=== PATIENT | female | born 1960 | race Caucasian/White ===

== ENCOUNTER → 2017-10-19 10:23 | Outpatient (CLI) | payer OTHER, SELFPAY ==
--- NOTE | 2017-10-19 10:26 | HPBI_ITS ---
MAMMOGRAPHY - BILATERAL SCREENING REASON FOR EXAM: Female, 57 years old. Routine annual screening examination. PERTINENT HISTORY: Aunt with breast cancer. TECHNIQUE: Digital bilateral breast stacy (3D mammographic acquisition) in the CC and MLO projections. 2-D mediolateral oblique (MLO) and craniocaudad (CC) views of both breasts were obtained. CAD: Full Field Digital Mammography with Computer Added Detection was performed. COMPARISON: Comparison is made with prior study dated September 19, 2016 and August 25, 2015. FINDINGS: Breast Composition: The breasts are heterogeneously dense, which may obscure small masses. There are no dominant masses or suspicious calcifications. Stable asymmetry of breast tissue or more breast tissue is seen in the right breast as compared to the left side. Stable appearance of the 1.4 cm nodular density in the retroareolar region of the right breast. Stable appearance of the bilateral axillary lymph nodes. No other significant abnormalities are identified. There has been no significant change since the prior study. HPBI/SCREENING MAMM (CAD), BILAT IMPRESSION: Stable bilateral screening mammogram. Yearly follow-up mammogram recommended. (A) ASSESSMENT CATEGORY: BIRADS Category 2: Benign. A letter regarding these results will be sent to the patient by the facility within 30 days. Approximately 10% of breast cancers are not detected by mammography. A normal mammogram should not delay biopsy of a clinically suspicious abnormality. [id number] Electronically Signed: Sen Flores MD at 12:45 EST Tel [phone], Service support ,
== END ==
PROVIDERS: Family Provider Family Medicine; PCP Family Medicine; Visit Provider Nurse Practitioner Adult Health
DX: Z12.31 Encounter for screening mammogram for malignant neoplasm of breast (principal)
CPT/HCPCS: 77063; 77067

== ENCOUNTER 2017-11-08 22:36 | Emergency (ER) | payer OTHER, SELFPAY ==
[2017-11-08 22:36] VITALS: BP 137/68; PULSE 99; RESP 28; TEMP 37; O2SAT 98; BMI 36.8
[2017-11-08 22:43] VITALS: O2SAT 98
[2017-11-08 22:45] VITALS: PULSE 87; RESP 13; O2SAT 98
--- NOTE | 2017-11-08 22:48 | ED.VISSUMM ---
- ER Visit Summary Date of Service: 11/08/17 Chief Complaint: Dyspnea History of Present Illness: The patient is a 57 F worsening dyspnea and cough since 3 PM today. Mild productive sputum. No tobacco history. No sick contacts. Similar symptoms with croup as a child requiring hospitalization. Asthma history. Did take a steam shower which mildly helped symptoms on the way here. No chest pains. States has 2 emesis from coughing today. Tolerating oral fluids. History of diabetes on oral medicines. Physical Examination: General: Alert and oriented ?3, mild distress HEENT: Normocephalic, atraumatic. Airway patent. Moist mucosa membranes. Upper respiratory stridor. Neck: supple, nontender. mild subcostal retractions Cardiovascular: Regular rate and rhythm, no murmurs Respiratory: Normal breath sounds, symmetric, no distress Abdomen: Soft, nontender, nondistended Extremities: Nontender, no edema, pulses intact ?4 Neuro: no focal neurological deficits. Test Results: BG T: 154 Emergency Department Course and Treatment: Patient presents with acute laryngitis with stridorous symptoms. Vitals stable. Treated with racemic epinephrine and Decadron. She is monitored for 2 hours, stridor improved. Still occasional cough. Discussed viral syndrome. Discuss adjuvant therapies. Monitor symptoms, return if any worsening stridor symptoms. All questions were answered. Treatment Plan: [] Disposition: Discharge Impression: 1. Acute laryngitis with stridor This note was generated with [employer] dictation software. It may contain incorrect words, spelling, and punctuation that were not noted in review of the chart prior to signing ED Disposition - Plan for ED Patient: Disposition: Home or Assisted Living Chief Complaint: Shortness of Breath Diagnosis: Acute laryngitis Instructions: ED Laryngitis Referrals: Collin Bautista MD [Primary Care Provider] - 3-5 Days
[2017-11-08] MEDS: Racepinephrine HCl 0.5 ML VIAL.NEB. INHALATION (22:55)
[2017-11-08 22:56] VITALS: PULSE 92; RESP 16
[2017-11-08 23:41] LABS: Bedside Glucose 154 mg/dL (70-110)
[2017-11-08 23:48] VITALS: PULSE 80; RESP 14; O2SAT 100
[2017-11-09 00:43] VITALS: BP 150/82; PULSE 101; RESP 18; O2SAT 94
== END 2017-11-09 00:45 | disposition home or self-care (01) ==
PROVIDERS: Emergency Provider Emergency Medicine; Family Provider Family Medicine; PCP Family Medicine
DX: J04.0 Acute laryngitis (principal); R06.1 Stridor; E11.9 Type 2 diabetes mellitus without complications; J45.909 Unspecified asthma, uncomplicated; Z79.84 Long term (current) use of oral hypoglycemic drugs; Z79.51 Long term (current) use of inhaled steroids; Z79.899 Other long term (current) drug therapy
CPT/HCPCS: 82962; 94640; 99283

== ENCOUNTER → 2018-05-10 09:42 | Outpatient (CLI) | payer OTHER, SELFPAY ==
[2018-05-10 12:34] LABS: ALB/GLOB Ratio 0.9 RATIO (0.9-2.4); AST(SGOT) 20 U/L (15-37); Alanine Aminotransfer ALT/SGPT 27 U/L (13-56); Albumin, Serum 3.7 g/dL (3.2-5.0); Alkaline Phosphatase 58 U/L (45-117); Anion Gap 10 (5-15); BUN 17 mg/dL (7-18); BUN/Creat Ratio 13.8 RATIO (10-20); Calcium,Total 9.9 mg/dL (8.5-10.1); Chloride 103 mmol/L (98-107); Cholesterol 107 mg/dL (200); Creatinine, Serum 1.23 mg/dL (0.55-1.02); EST Glomerular Filtration Rate 48 mL/min (>60); Est Glom Filt Rate - Afr Amer 58 mL/min (>60); Globulin 4.3 g/dL (2.2-4.2); Glucose 126 mg/dL (74-106); High Density Lipoprotein 41 mg/dL; Potassium 4.1 mmol/L (3.5-5.1); Sodium Level 137 mmol/L (136-145); Thyroid Stim Hormone (TSH) 2.62 uIU/mL (0.358-3.74); Triglycerides 85 mg/dL; Very Low Density Lipoprotein 17 mg/dL (5-40)
== END ==
PROVIDERS: Family Provider Family Medicine; PCP Family Medicine; Visit Provider Family Medicine
DX: E11.9 Type 2 diabetes mellitus without complications (principal)
CPT/HCPCS: 36415; 80053; 80061; 84443

== ENCOUNTER → 2018-11-14 10:24 | Outpatient (CLI) | payer BC, SELFPAY ==
--- NOTE | 2018-11-14 10:29 | BI_ITS ---
MAMMOGRAPHY - BILATERAL SCREENING REASON FOR EXAM: Female, 58 years old. Routine annual screening examination. PERTINENT HISTORY: Aunt with breast cancer. History of remote right stereotactic breast biopsy. TECHNIQUE: Digital bilateral breast stacy (3D mammographic acquisition) in the CC and MLO projections. 2-D mediolateral oblique (MLO) and craniocaudad (CC) views of both breasts were obtained. CAD: Full Field Digital Mammography with Computer Added Detection was performed. COMPARISON: Comparison is made with prior study dated October 19, 2017 and September 19, 2016. FINDINGS: Breast Composition: The breasts are heterogeneously dense, which may obscure small masses. Stable asymmetry of breast tissue where more breast tissue is seen in the right breast as compared to the left side. There is a 1.4 cm x 0.9 cm nodule in the mid superior aspect of the left breast. Correlation with ultrasound is recommended. No other significant abnormalities are identified. BI/SCREENING MAMM (CAD), BILAT IMPRESSION: 1.4 cm x 0.9 cm nodule in the mid superior aspect of the left breast as described. Correlation with ultrasound is recommended. ASSESSMENT CATEGORY: BIRADS Category 0: Incomplete. Need additional imaging evaluation. A letter regarding these results will be sent to the patient by the facility within 30 days. Approximately 10% of breast cancers are not detected by mammography. A normal mammogram should not delay biopsy of a clinically suspicious abnormality. [id number] Electronically Signed: Sen Flores, at 12:43 EDT , Service support ,
== END ==
PROVIDERS: Family Provider Family Medicine; PCP Family Medicine; Visit Provider Family Medicine
DX: Z12.31 Encounter for screening mammogram for malignant neoplasm of breast (principal)
CPT/HCPCS: 77063; 77067

== ENCOUNTER → 2018-11-19 09:21 | Outpatient (CLI) | payer BC, SELFPAY ==
--- NOTE | 2018-11-19 09:23 | US_ITS ---
STUDY: ULTRASOUND BREAST - LEFT REASON FOR EXAM: Female, 58 years old. Abnormal screening mammogram. TECHNIQUE: Axial and longitudinal images of the LEFT breast were performed with a high resolution ultrasound transducer. COMPARISON: Comparison is made with prior mammogram dated November 14, 2018. FINDINGS: LEFT Breast: The mammographic abnormality corresponds to a 1.4 cm x 0.8 cm x 0.6 cm irregular hypoechoic density at the 12:00 position breast at 1 cm from the nipple. This may represent either a focally dilated duct with debris within it or a possible mass. A biopsy recommended for further evaluation. US/Breast Limited Unilateral IMPRESSION: 1.4 cm x 0.8 cm x 0.6 cm ill-defined hypoechoic density at the 12:00 position breast at 1 cm from nipple. This may represent either a mass or focal dilatation of the duct with debris. A biopsy recommended. ASSESSMENT CATEGORY: BIRADS Category 4: Suspicious - Biopsy Should Be Considered. A letter regarding these results will be sent to the patient by the facility within 30 days. Electronically Signed: Sen Flores, at 10:24 EDT , Service support ,
== END ==
PROVIDERS: Family Provider Family Medicine; PCP Family Medicine; Referring Provider Family Medicine; Visit Provider Family Medicine
DX: R92.8 Other abnormal and inconclusive findings on diagnostic imaging of breast (principal)
CPT/HCPCS: 76642

== ENCOUNTER → 2018-11-26 | Outpatient (CLI) | payer BC, SELFPAY ==
[2018-11-22 12:31] VITALS: BMI 35.4
[2018-11-26 13:00] LABS: AST(SGOT) 18 U/L (15-37); Alanine Aminotransfer ALT/SGPT 27 U/L (13-56); Albumin, Serum 3.9 g/dL (3.2-5.0); Alkaline Phosphatase 58 U/L (45-117); Anion Gap 6 (5-15); BUN 19 mg/dL (7-18); BUN/Creat Ratio 15.8 RATIO (10-20); Calcium,Total 9.6 mg/dL (8.5-10.1); Chloride 107 mmol/L (98-107); Cholesterol 110 mg/dL (200); EST Glomerular Filtration Rate 49 mL/min (>60); Est Glom Filt Rate - Afr Amer 59 mL/min (>60); Globulin 3.8 g/dL (2.2-4.2); Glucose 123 mg/dL (74-106); High Density Lipoprotein 42 mg/dL; Potassium 4.3 mmol/L (3.5-5.1); Protein, Total 7.7 g/dL (6.4-8.2); Sodium Level 141 mmol/L (136-145); Thyroid Stim Hormone (TSH) 2.15 uIU/mL (0.358-3.74); Triglycerides 91 mg/dL; Very Low Density Lipoprotein 18 mg/dL (5-40)
== END | disposition home or self-care (01) ==
LOC: MTLAB 09:16
PROVIDERS: Family Provider Family Medicine; PCP Family Medicine; Visit Provider Family Medicine
DX: E11.9 Type 2 diabetes mellitus without complications (principal)
CPT/HCPCS: 36415; 80053; 80061; 84443

== ENCOUNTER → 2018-12-07 | Outpatient (CLI) | payer BC, SELFPAY ==
[2018-11-22 12:31] VITALS: BMI 35.4
--- NOTE | 2018-12-07 | BRBX_PTH ---
PATIENT: JUDITH GILBERT LOC: [facility]#:[id number] AGE/SX: 58/F ROOM: RE12/07/[address]: Dr. Melchor Reyes MD : 1960 BED: DIS: 12/07/2018 SPEC #: [id number] RECD: 12/07/18 13:38 STATUS: CARMEN REQ #: [id number] LA[place]: 12/07/18 00:[address]: Melchor Reyes DEPT: SURGICAL PATHOLOGY RECD BY: Cliff Stewart ENTERED: 12/07/18 13:39 SP TYPE: BREAST BX OTHR DR: Dr. Dirk Bautista MD Tissues: Left breast, NOS Procedures: Surgery Specimen Level IV HEADER OPERATION: Left breast biopsy, ultrasound-guided PRE-OP DIAGNOSIS: Left breast mass at 12 o'clock TISSUE SUBMITTED: Left breast mass at 12 o'clock ISCHEMIC TIME: 1 minute FIXATION TIME: 55.5 hours MICROSCOPIC DIAGNOSIS Left breast mass at 12 o'clock, ultrasound-guided core biopsy: Fragments of benign breast tissue with dense fibrosis. Negative for atypia or malignancy. ALEX:keith 12/10/18 COMMENT Correlation with clinical, radiologic findings and appropriate follow up are necessary. MICROSCOPIC DESCRIPTION Slides are reviewed. GROSS DESCRIPTION Received is one container labeled with the patient's name and not further designated. The specimen consists of multiple elongated fragments of sin-yellow fibroadipose tissue that in aggregate measure 1.5 x 0.2 x 0.1 cm. The entire specimen is submitted in one cassette. / ALEX:keith 12/07/18 TC:5 CPT: 13017
--- NOTE | 2018-12-07 12:10 | US_ITS ---
STUDY: ULTRASOUND BREAST - LEFT REASON FOR EXAM: Female, 58 years old. Biopsy for the left breast mass. TECHNIQUE: Axial and longitudinal images of the LEFT breast were performed with a high resolution ultrasound transducer. COMPARISON: Comparison is made with prior sonogram dated November 19, 2018 and prior mammogram dated November 14, 2018. FINDINGS: LEFT Breast: Under ultrasound guidance, the surgeon performed core biopsies of the 1.5 cm x 1 cm x 0.7 cm solid nodule at the 12:00 position of the breast. US/US Breast Biopsy 1st Lesion IMPRESSION: Successful ultrasound-guided biopsy of the left breast mass. ASSESSMENT CATEGORY: BIRADS Category 4: Suspicious - Biopsy Should Be Considered. A letter regarding these results will be sent to the patient by the facility within 30 days. Electronically Signed: Sen Flores, at 13:46 EDT , Service support ,
--- NOTE | 2018-12-07 14:03 | PCM.OPRPT ---
Problem List (1) Abnormal mammogram of left breast Status: Acute Report of Operation Date of Procedure: 12/07/18 Pre-Operative Diagnosis: Abnormal mammogram the left breast Post-Operative Diagnosis: Same Surgery/Procedure Performed:: Ultrasound-guided needle core biopsy of abnormal mammogram the left breast Type of Anesthesia:: Local Description of Procedure: Patient was brought into the ultrasound room. Ultrasound of the left breast at the 12 o'clock position revealed the lesion in question. I prepped the skin with chlorhexidine. I injected 1% lidocaine plain. I injected local down to the lesion under ultrasound guidance. A skin roxanna was made. Under ultrasound guidance 2 needle core biopsies were obtained. Under ultrasound guidance a small titanium clip was placed. Steri-Strips were applied sterile dressings were applied and the patient tolerated the procedure well. - Admit VTE Documentation VTE Present on Admission: No VTE Mechan Device Prophylaxis: None VTE Pharm Prophylaxis ordered?: No Reason prophylaxis not ordered:: Treatment Not Indicated
== END | disposition home or self-care (01) ==
LOC: US 12:01
PROVIDERS: Family Provider Family Medicine; PCP Family Medicine; Referring Provider Surgery; Visit Provider Surgery
DX: R92.8 Other abnormal and inconclusive findings on diagnostic imaging of breast (principal)
CPT/HCPCS: 19083; 88305

== ENCOUNTER → 2019-03-01 | Outpatient (CLI) | payer BC, SELFPAY ==
[2018-11-22 12:31] VITALS: BMI 35.4
[2019-03-01 11:01] LABS: Anion Gap 5 (5-15); BUN 19 mg/dL (7-18); BUN/Creat Ratio 16.7 RATIO (10-20); Calcium,Total 9.1 mg/dL (8.5-10.1); Chloride 106 mmol/L (98-107); Creatinine, Serum 1.14 mg/dL (0.55-1.02); EST Glomerular Filtration Rate 52 mL/min (>60); Est Glom Filt Rate - Afr Amer 63 mL/min (>60); Glucose 137 mg/dL (74-106); Potassium 4.2 mmol/L (3.5-5.1); Sodium Level 139 mmol/L (136-145)
== END | disposition home or self-care (01) ==
LOC: MFPLAB 09:26
PROVIDERS: Family Provider Family Medicine; PCP Family Medicine; Visit Provider Family Medicine
DX: I10 Essential (primary) hypertension (principal)
CPT/HCPCS: 36415; 80048

== ENCOUNTER → 2019-06-10 | Outpatient (CLI) | payer BC, SELFPAY ==
[2018-11-22 12:31] VITALS: BMI 35.4
--- NOTE | 2019-06-10 09:05 | BI_ITS ---
MAMMOGRAPHY - UNILATERAL DIAGNOSTIC: LEFT BREAST REASON FOR EXAM: Female, 58 years old. History of left ultrasound-guided breast biopsy in prior stereotactic breast biopsy. PERTINENT HISTORY: Non-contributory. TECHNIQUE: Digital unilateral breast stacy (3D mammographic acquisition) in the CC and MLO projections. 2-D mediolateral oblique (MLO) and craniocaudad (CC) views of both breasts were obtained. CAD: Full Field Digital Mammography with Computer Added Detection was performed. COMPARISON: Comparison is made with prior examination dated November 14, 2018. FINDINGS: Breast Composition: The breasts are heterogeneously dense, which may obscure small masses. Stable 1.3 cm x 1 cm well-defined nodule in the mid upper portion of the left breast. This is unchanged. A tissue clip marker is now seen in the retroareolar region of the left breast. Stable appearance of the small axillary lymph nodes. No other significant abnormalities are identified. There has been no significant change since the prior study. BI/DIAG MAMM W/CAD, UNILAT IMPRESSION: Stable unilateral diagnostic mammogram. Stable appearance of the 1.3 cm x 1 cm well-defined nodule in the mid upper portion of the left breast. Since prior study, a tissue clip marker is seen in the retroareolar region of the breast. One year follow-up mammogram recommended. (A) ASSESSMENT CATEGORY: BIRADS Category 2: Benign. A letter regarding these results will be sent to the patient by the facility within 30 days. Approximately 10% of breast cancers are not detected by mammography. A normal mammogram should not delay biopsy of a clinically suspicious abnormality. Electronically Signed: Sen Flores, at 11:25 EDT , Service support ,
--- NOTE | 2019-06-10 09:05 | US_ITS ---
STUDY: ULTRASOUND BREAST - LEFT REASON FOR EXAM: Female, 58 years old. Six-month follow-up for prior biopsy. TECHNIQUE: Axial and longitudinal images of the LEFT breast were performed with a high resolution ultrasound transducer. COMPARISON: Comparison is made with prior ultrasound the left breast dated December 07, 2018. FINDINGS: LEFT Breast: A tissue clip marker is seen within a 1 cm x 1.1 cm x 0.6 cm slightly irregular hypoechoic nodule at the 12:00 position in the breast at 1 cm from the nipple. US/Breast Limited Unilateral IMPRESSION: Stable appearance of the hypoechoic nodule at the 12:00 position of the breast at 1 cm from nipple with a tissue clip marker within it. ASSESSMENT CATEGORY: BIRADS Category 2: Benign. A letter regarding these results will be sent to the patient by the facility within 30 days. Electronically Signed: Sen Flores, at 11:23 EDT , Service support ,
== END | disposition home or self-care (01) ==
LOC: OPBI 09:03
PROVIDERS: Family Provider Family Medicine; PCP Family Medicine; Referring Provider Surgery; Visit Provider Surgery
DX: R92.8 Other abnormal and inconclusive findings on diagnostic imaging of breast (principal); Z98.890 Other specified postprocedural states
CPT/HCPCS: 76642; 77061; 77065; G0279

== ENCOUNTER → 2019-10-21 | Outpatient (CLI) | payer BC, SELFPAY ==
[2018-11-22 12:31] VITALS: BMI 35.4
[2019-10-24 14:04] LABS: HPV Reflexed? NOT INDICATED
== END | disposition home or self-care (01) ==
PROVIDERS: PCP Family Medicine; Visit Provider Nurse Practitioner Adult Health
DX: Z01.419 Encounter for gynecological examination (general) (routine) without abnormal findings (principal)
CPT/HCPCS: 88175; G0145

== ENCOUNTER → 2020-01-06 | Outpatient (CLI) | payer BC, SELFPAY ==
[2018-11-22 12:31] VITALS: BMI 35.4
[2020-01-06 12:45] LABS: Anion Gap 8 (5-15); BUN 22 mg/dL (7-18); BUN/Creat Ratio 18.5 RATIO (10-20); Calcium,Total 9.8 mg/dL (8.5-10.1); Chloride 104 mmol/L (98-107); Creatinine, Serum 1.19 mg/dL (0.55-1.02); EST Glomerular Filtration Rate 49 mL/min (>60); Est Glom Filt Rate - Afr Amer 59 mL/min (>60); Glucose 108 mg/dL (74-106); Potassium 4.3 mmol/L (3.5-5.1); Sodium Level 137 mmol/L (136-145)
== END | disposition home or self-care (01) ==
LOC: MFPLAB 11:00
PROVIDERS: PCP Family Medicine; Visit Provider Family Medicine
DX: E11.9 Type 2 diabetes mellitus without complications (principal)
CPT/HCPCS: 36415; 80048

== ENCOUNTER → 2020-07-01 09:57 | Outpatient (CLI) | payer BC, SELFPAY ==
[2018-11-22 12:31] VITALS: BMI 35.4
--- NOTE | 2020-07-01 10:01 | BI_ITS ---
MAMMOGRAPHY - BILATERAL SCREENING REASON FOR EXAM: Female, 59 years old. Routine annual screening examination. PERTINENT HISTORY: Aunt with breast cancer. Remote right stereotactic breast biopsy and left breast biopsy. TECHNIQUE: Digital bilateral breast steve (3D mammographic acquisition) in the CC and MLO projections. 2-D mediolateral oblique (MLO) and craniocaudad (CC) views of both breasts were obtained. CAD: Full Field Digital Mammography with Computer Added Detection was performed. COMPARISON: Comparison is made with prior study dated 06/10/2019. FINDINGS: Breast Composition: The breasts are heterogeneously dense, which may obscure small masses. There are no dominant masses or suspicious calcifications. Stable 1.3 cm x 1.1; defined nodule in the mid upper portion of left breast. This is unchanged. Once again, a tissue clip marker is seen in the retroclival region of the left breast. No other significant abnormalities are identified. There has been no significant change since the prior study. BI/SCREEN MAMM (CAD) W/STEVE BILAT IMPRESSION: Stable bilateral screening mammogram. Yearly follow-up mammogram recommended. (A) ASSESSMENT CATEGORY: BIRADS Category 2: Benign. A letter regarding these results will be sent to the patient by the facility within 30 days. Approximately 10% of breast cancers are not detected by mammography. A normal mammogram should not delay biopsy of a clinically suspicious abnormality. [id number] Electronically Signed: Sen Flores, at 11:30 EST , Service support ,
== END ==
PROVIDERS: PCP Family Medicine; Referring Provider Nurse Practitioner Adult Health; Visit Provider Nurse Practitioner Adult Health
DX: Z12.31 Encounter for screening mammogram for malignant neoplasm of breast (principal)
CPT/HCPCS: 77063; 77067

== ENCOUNTER → 2020-07-13 09:23 | Outpatient (CLI) | payer BC, SELFPAY ==
[2018-11-22 12:31] VITALS: BMI 35.4
[2020-07-13 10:42] LABS: Cholesterol 158 mg/dL (200); High Density Lipoprotein 46 mg/dL; Thyroid Stim Hormone (TSH) 2.28 uIU/mL (0.358-3.74); Triglycerides 133 mg/dL; Very Low Density Lipoprotein 27 mg/dL (5-40)
== END ==
PROVIDERS: PCP Family Medicine; Visit Provider Family Medicine
DX: E11.65 Type 2 diabetes mellitus with hyperglycemia (principal)
CPT/HCPCS: 36415; 80061; 84443

== ENCOUNTER → 2020-08-10 | Outpatient (CLI) | payer BC, SELFPAY ==
[2018-11-22 12:31] VITALS: BMI 35.4
== END | disposition home or self-care (01) ==
LOC: LABSPEC 13:45
PROVIDERS: PCP Family Medicine; Referring Provider Family Medicine; Visit Provider Family Medicine
DX: Z20.828 Contact with and (suspected) exposure to other viral communicable diseases (principal)
CPT/HCPCS: 87635; U0003

== ENCOUNTER → 2020-12-04 09:03 | Outpatient (CLI) | payer OTHER, SELFPAY ==
[2018-11-22 12:31] VITALS: BMI 35.4
--- NOTE | 2020-12-04 09:21 | BI_ITS ---
MAMMOGRAPHY - UNILATERAL DIAGNOSTIC: RIGHT BREAST REASON FOR EXAM: Female, 60 years old. Right breast mass. PERTINENT HISTORY: Aunt with breast cancer. TECHNIQUE: Digital unilateral breast stacy (3D mammographic acquisition) in the CC and MLO projections. 2-D mediolateral oblique (MLO) and craniocaudad (CC) views of both breasts were obtained. CAD: Full Field Digital Mammography with Computer Added Detection was performed. COMPARISON: Comparison is made with prior study dated 07/01/2020. FINDINGS: Breast Composition: The breasts are heterogeneously dense, which may obscure small masses. There are now is evidence of a 1.8 cm x 1.1 cm nodule in the upper slightly lateral aspect of the right breast. Correlation with ultrasound is recommended. No other significant abnormalities are identified. BI/DIAG MAMM W/CAD, UNILAT IMPRESSION: 1.8 cm x 1.1 cm nodule in these upper slightly outer aspect of the right breast as described. Correlation with ultrasound is recommended. ASSESSMENT CATEGORY: BIRADS Category 0: Incomplete. Need additional imaging evaluation. A letter regarding these results will be sent to the patient by the facility within 30 days. Approximately 10% of breast cancers are not detected by mammography. A normal mammogram should not delay biopsy of a clinically suspicious abnormality. Electronically Signed: Sen Flores MD at 10:59 EDT , Service support ,
--- NOTE | 2020-12-04 10:02 | US_ITS ---
STUDY: ULTRASOUND BREAST - RIGHT REASON FOR EXAM: Female, 60 years old. 7-10 day history of palpable lump in the upper outer aspect of the breast. TECHNIQUE: Axial and longitudinal images of the RIGHT breast were performed with a high resolution ultrasound transducer. # OF IMAGES: 65 COMPARISON: Comparison is made with prior mammogram done earlier today. FINDINGS: RIGHT Breast: There is a 2 cm x 2 cm x 1.2 cm density of heterogeneous echotexture at the 10 o''clock position of the breast at 7 cm from nipple. This corresponds to the palpable modality. A biopsy is recommended. Dense breast tissue. US/Breast Limited Unilateral IMPRESSION: 2 cm x 2 cm x 1.2 cm heterogeneous density at the 10 o''clock position of the breast at 7 cm from nipple. A biopsy is recommended. ASSESSMENT CATEGORY: BIRADS Category 4: Suspicious - Biopsy Should Be Considered. A letter regarding these results will be sent to the patient by the facility within 30 days. Electronically Signed: Sen Flores MD at 10:58 EDT , Service support ,
== END ==
PROVIDERS: PCP Family Medicine; Referring Provider Nurse Practitioner Family; Visit Provider Nurse Practitioner Family
DX: N63.10 Unspecified lump in the right breast, unspecified quadrant (principal)
CPT/HCPCS: 76642; 77061; 77065; G0279

== ENCOUNTER → 2020-12-22 | Outpatient (CLI) | payer OTHER, SELFPAY ==
[2020-12-22 10:17] VITALS: BMI 38.2
--- NOTE | 2020-12-22 10:40 | BRBX_PTH ---
PATIENT: JUDITH GILBERT LOC: [facility] U#:[id number] AGE/SX: 60/F ROOM: RE12/22/[address]: Dr. Amarilys Lacey MD : 1960 BED: DIS: 12/22/2020 SPEC #: [id number] RECD: 12/22/20 11:05 STATUS: CARMEN SAMLON #: [id number] LA[place]: 12/22/20 10:[address]: Amarilys Lacey DEPT: SURGICAL PATHOLOGY RECD BY: Maureen Hernandez ENTERED: 12/22/20 13:03 SP TYPE: BREAST BX OTHR DR: Dr. Dirk Bautista MD Tissues: Breast, NOS Procedures: Surgery Specimen Level IV HEADER OPERATION: Right breast biopsy PRE-OP DIAGNOSIS: Right breast mass; cyst with hematoma TISSUE SUBMITTED: Right breast tissue, 10 o?clock, 7 cm MICROSCOPIC DIAGNOSIS Right breast mass, biopsy: Fibrosis with associated fibrinoid material, mild acute inflammation and chronic inflammation. Focal fat necrosis. No evidence of malignancy. AM:keith 12/23/2020 COMMENT Reference is made to the previous case ([id number]) left breast mass biopsy from 2019 with a diagnosis of no malignancy was identified. MICROSCOPIC DESCRIPTION Slides are reviewed. GROSS DESCRIPTION Received in fixative is one container labeled with the patient name and designated right breast. The specimen consists of multiple elongated fragments of sin-yellow fibroadipose tissue that in aggregate measure 1.5 x 0.1 x 0.1 cm. The entire specimen is submitted in one cassette. / SJ:keith 12/22/20 TC:2 CPT: 80243
== END | disposition home or self-care (01) ==
LOC: LABSPEC 12:27
PROVIDERS: PCP Family Medicine; Referring Provider Surgery; Visit Provider Surgery
DX: N63.10 Unspecified lump in the right breast, unspecified quadrant (principal)
CPT/HCPCS: 88305

== ENCOUNTER → 2021-01-07 10:07 | Outpatient (CLI) | payer OTHER, SELFPAY ==
[2020-12-22 10:17] VITALS: BMI 38.2
[2021-01-07 12:38] LABS: AST(SGOT) 18 U/L (15-37); Alanine Aminotransfer ALT/SGPT 26 U/L (13-56); Albumin, Serum 3.8 g/dL (3.2-5.0); Alkaline Phosphatase 55 U/L (45-117); Anion Gap 6 (5-15); BUN 23 mg/dL (7-18); BUN/Creat Ratio 17.2 RATIO (10-20); Calcium,Total 9.8 mg/dL (8.5-10.1); Chloride 104 mmol/L (98-107); Creatinine, Serum 1.34 mg/dL (0.55-1.02); EST Glomerular Filtration Rate 43 mL/min (>60); Est Glom Filt Rate - Afr Amer 52 mL/min (>60); Globulin 3.9 g/dL (2.2-4.2); Glucose 103 mg/dL (74-106); Potassium 4.4 mmol/L (3.5-5.1); Protein, Total 7.7 g/dL (6.4-8.2); Sodium Level 137 mmol/L (136-145)
== END ==
PROVIDERS: PCP Family Medicine; Referring Provider Family Medicine; Visit Provider Family Medicine
DX: E11.65 Type 2 diabetes mellitus with hyperglycemia (principal)
CPT/HCPCS: 36415; 80053

== ENCOUNTER 2021-10-13 11:47 | Outpatient (CLI) | payer OTHER, SELFPAY ==
[2021-10-13 15:39] LABS: AST(SGOT) 24 U/L (15-37); Alanine Aminotransfer ALT/SGPT 34 U/L (13-56); Albumin, Serum 3.8 g/dL (3.2-5.0); Alkaline Phosphatase 91 U/L (45-117); Anion Gap 8 (5-15); BUN 14 mg/dL (7-18); BUN/Creat Ratio 14.9 RATIO (10-20); Calcium,Total 9.5 mg/dL (8.5-10.1); Chloride 102 mmol/L (98-107); Cholesterol 153 mg/dL (200); Creatinine, Serum 0.94 mg/dL (0.55-1.02); EST Glomerular Filtration Rate 64 mL/min (>60); Est Glom Filt Rate - Afr Amer 78 mL/min (>60); Glucose 127 mg/dL (74-106); High Density Lipoprotein 46 mg/dL; Potassium 4.4 mmol/L (3.5-5.1); Protein, Total 7.8 g/dL (6.4-8.2); Sodium Level 136 mmol/L (136-145); Thyroid Stim Hormone (TSH) 2.65 uIU/mL (0.358-3.74); Triglycerides 146 mg/dL; Very Low Density Lipoprotein 29 mg/dL (5-40)
== END 2021-10-13 23:59 | disposition home or self-care (01) ==
LOC: MFPLAB 11:50
PROVIDERS: PCP Family Medicine; Referring Provider Family Medicine; Visit Provider Family Medicine
DX: E11.65 Type 2 diabetes mellitus with hyperglycemia (principal)
CPT/HCPCS: 36415; 80053; 80061; 84443

== ENCOUNTER → 2022-02-16 | Outpatient (CLI) | payer OTHER, SELFPAY ==
[2022-02-16 15:11] LABS: Absolute Lymphocyte Count 1.94 X10^3/uL (0.83-4.51); Absolute Neutrophil Count 4.5 X10^3/uL (2.0-7.7); Basophil# 0.03 X10^3/uL; Basophil% 0.4 % (0-1); Eosinophils% 2.8 % (0-5); Lymphocyte # 1.94 X10^3/ul (0.83-4.51); Lymphocyte % 27.2 % (19-41); Mean Corp Hgb Conc 32.5 g/dL (32-36); Mean Corpuscular Volume 86.2 fL (81-99); Monocyte% 5.6 % (0-10); NRBC Flagged by Analyzer 0 % (0-5); Neutrophil # 4.54 X10^3/uL (2.7-7.7); Neutrophil % 63.9 % (47-70); Platelet Count 271 K/mm3 (150-450); RBC Distribution Width CV 13.3 % (11.6-14.6); RBC Distribution Width SD 41.3 fl (35.1-43.9); Red Blood Count 4.64 M/mm3 (4.2-5.4); White Blood Count 7.1 K/mm3 (4.4-11.0)
[2022-02-16 15:46] LABS: AST(SGOT) 20 U/L (15-37); Alanine Aminotransfer ALT/SGPT 31 U/L (13-56); Albumin, Serum 3.8 g/dL (3.2-5.0); Alkaline Phosphatase 60 U/L (45-117); Anion Gap 6 (5-15); BUN 14 mg/dL (7-18); BUN/Creat Ratio 11.3 RATIO (10-20); Calcium,Total 10.5 mg/dL (8.5-10.1); Chloride 100 mmol/L (98-107); Creatinine, Serum 1.24 mg/dL (0.55-1.02); EST Glomerular Filtration Rate 47 mL/min (>60); Est Glom Filt Rate - Afr Amer 56 mL/min (>60); Globulin 3.7 g/dL (2.2-4.2); Glucose 274 mg/dL (74-106); Potassium 4.2 mmol/L (3.5-5.1); Protein, Total 7.5 g/dL (6.4-8.2); Sodium Level 133 mmol/L (136-145)
== END | disposition home or self-care (01) ==
LOC: MTLAB 12:42
PROVIDERS: PCP Family Medicine; Referring Provider Family Medicine; Visit Provider Family Medicine
DX: E11.9 Type 2 diabetes mellitus without complications (principal)
CPT/HCPCS: 36415; 80053; 85025

== ENCOUNTER 2022-06-30 18:00 | Outpatient (RCR) | payer OTHER, SELFPAY ==
--- NOTE | 2022-04-12 18:23 | HP.PTEVAL ---
Patient's Visit Information JUDITH GILBERT is a 61 year old F referred to Physical Therapy by Dr. Collin Bautista MD with a diagnosis of L ITB piriformis syndrome. Date of Evaluation: 04/12/22 Physical Therapist: Manny Francis, DPT, OCS, CSCS - Visit Plan Frequency: 2-3x /Week Duration: 4-6 Weeks Plan: 2-3x/week for 4 weeks for... 1. start with rollout and stretch with MH to L piriformis, ITB . HS and quad and progress quad and HS to EHP(piriformis and ITB already given). 2. hip, core strength to HEP. 3. LB ROM focussing extension to HEP. progress as tolerated to gym based core, LE and postural strength ex emphasizing hips. - Subjective In October or November had some sciatica very bad. Had prednisone for two weeks and it did not help. Eventually she felt better Pain moved from L buttock and now posterior and down L lateral leg and calf. Got steroid shot a few weeks ago which really helped and that was in her hip. Some days she is fine and other days she gets up after sitting and can hardly move. Some nights rolling fine and other nights rolling in bed is tough. Pain has been up to 7/10 in last week mostly dull 2-3/10 in L knee and lateral. Has no LBP currently but but did early on in back. No xray or MRI. 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 STanding is less comfortable than sitting. Activities at home are interrupted sometimes. Cannot garden fully, needs to limit push lawn mowing b/c she feels worse afterwords. Has to sit on stool to garden. No incontinence. Doctor gave stretches which did not help, leg crossed pirifromis stretch, - Pain L hip and leg Pain Intensity (Out of 10): 2 Pain Intensity Range: 0, 7 - Objective Walks with slight L antalgia and L hip slightly higher than R. I gait, I transfers but rolling and lifting hips in supine painful in L hip when WB L LE. Good balance. knee and ankle AROM WFL B LE and W/o pain. Strength is 4-/5 in knees and ankles and has some discomfort L hip lateral with resisted knee ext. LB AROM ext mod limited, flexiona nd SB are OK. Some pain L hip with ext. - SLR, - slump test. Max tight in HS , ITB, quads and psoas, mod in prifromis. Hip AROm B symmetircal and WFL, no obvious asymmetries in strength although L hip painful with abd, flexion and slightly with extension all in lateral hip. Max tender to touch L piriformis area, ITB, mildly into HS and lateral quad. reflexes 1/3 patella and achilles B. Sensation L E WNL to gross light touch. - ANGELA. - FADDIR - Balance/Special Test Scores Lower Extremity Functional Score: 52 - Goals Goal 1:: Patient feel 75% betterin L LE pain at 1/10 at worst. Goal Time Frame: 4-6 Weeks Goal 2:: Pt have full LB ROM and walk without antalgia due to pain Goal Time Frame: 4-6 Weeks Goal 3:: I appropriate HEP to minimize future problems Goal Time Frame: 4-6 Weeks Goal 4:: LEFS score 65 Goal Time Frame: 4-6 Weeks Goal 5:: sleep without interruption due to pain Goal Time Frame: 4-6 Weeks - Rehabilitation Potential Physical Therapy Diagnosis: L leg pain soft tissue in nature with back limitations. Rehabilitation Potential: Fair - Anticipated Interventions Patient/Client Instruction: Educate patient on: Condition, Plan of Care For the Purpose of:: To decrease pain, To increase ROM, To improve nutrient delivery to tissue, To improve muscle performance and motor function, To increase tolerance to activity/condition/position Therapeutic Exercise to Include: Strength training, Postural training, Flexibilty training, Passive ROM, Active ROM, Dynamic Lumbar Stabilization For the Purpose of:: To decrease pain, To increase ROM, To improve nutrient delivery to tissue, To improve muscle performance and motor function, To increase tolerance to activity/condition/position Manual Therapy Techniques to Include: Mobilization, Passive ROM, Soft tissue mobilization For the Purpose of:: To decrease pain, To increase ROM, To improve nutrient delivery to tissue TENS: Yes Thermo therapy (hot pack): Yes For the Purpose of:: To decrease pain, To decrease swelling/inflammation, To increase ROM Thank you for the opportunity to evaluate your patient. For Medicare and Medicare HMO plans, please review the plan of care and approve it. It will need to be FAXED BACK to us at [phone] for Medicare purposes. For Medicare only, by signing this I certify the plan of care. Please let me know if there are questions or concerns regarding this plan of care. Physician Signature: Date:
--- NOTE | 2022-05-17 18:48 | HP.PTREVAL_ITS ---
Dr. Collin Bautista MD, It has been my pleasure to treat JUDITH GILBERT over the last 9 visits for L ITB piriformis syndrome. Please see the progress note below for an update on the physical therapy plan of care! Subjective: So much better overall. Still has tweaks and twinges. Stretches have been semi regular. Pain depends on the day. Been using lumbar support at home and it helps. Limiting sitting. Feels like continuing stretches will get her where she needs to be. Bad days are 8/10 lateral hip. Good days are 0/10. To doctor in a month. Has had injections in the past but does not want more and does not want more meds. Life will slow down in a montha dn she will be able to do exercises. Objective/Function: Walking well today, Steps reciprocally with rail without pain expressions. Slight discomfort hip scooting onto table noticeable. Plan Plan: f/u 3 weeks for d/c or consider gym exercises(pt to [employer]) if desired. Pt to ex at home in the meantime and call if pain worsens. Balance/Gait/Functional tests - Balance/Special Test Scores Lower Extremity Functional Score: 57 Goals Goal 1:: Patient feel 75% betterin L LE pain at 1/10 at worst. Goal Time Frame: 4-6 Weeks Goal Progress: Goal Met Goal 2:: Pt have full LB ROM and walk without antalgia due to pain Goal Time Frame: 4-6 Weeks Goal Progress: Goal Met Goal 3:: I appropriate HEP to minimize future problems Goal Time Frame: 4-6 Weeks Goal Progress: Goal Met Goal 4:: LEFS score 65 Goal Time Frame: 4-6 Weeks Goal Progress: Progressing Goal 5:: sleep without interruption due to pain Goal Time Frame: 4-6 Weeks Goal Progress: Goal Met, intermittently Anticipated Interventions Patient/Client Instruction: Educate patient on: Condition, Plan of Care For the Purpose of:: To decrease pain, To increase ROM, To improve nutrient delivery to tissue, To improve muscle performance and motor function, To increase tolerance to activity/condition/position Therapeutic Exercise to Include: Strength training, Postural training, Flexibilty training, Passive ROM, Active ROM, Dynamic Lumbar Stabilization For the Purpose of:: To decrease pain, To increase ROM, To improve nutrient delivery to tissue, To improve muscle performance and motor function, To increase tolerance to activity/condition/position Manual Therapy Techniques to Include: Mobilization, Passive ROM, Soft tissue mobilization For the Purpose of:: To decrease pain, To increase ROM, To improve nutrient delivery to tissue TENS: Yes Thermo therapy (hot pack): Yes For the Purpose of:: To decrease pain, To decrease swelling/inflammation, To i ncrease ROM Please do not hesitate to contact me at [phone] by phone or if you have questions or concerns regarding this new plan of care! Sincerely, Manny Francis, DPT, OCS, CSCS
--- NOTE | 2022-06-29 07:45 | HP.PTDCNRP_ITS ---
JUDITH GILBERT was seen in my office for initial evaluation on 04/12/22. The following Plan of Care was established for this patient: Initial Frequency: 2-3x /Week Initial Duration: 4-6 Weeks Patient/Client Instruction: Educate patient on: Condition, Plan of Care For the Purpose of:: To decrease pain, To increase ROM, To improve nutrient delivery to tissue, To improve muscle performance and motor function, To increase tolerance to activity/condition/position Therapeutic Exercise to Include: Strength training, Postural training, Flexibilty training, Passive ROM, Active ROM, Dynamic Lumbar Stabilization For the Purpose of:: To decrease pain, To increase ROM, To improve nutrient delivery to tissue, To improve muscle performance and motor function, To increase tolerance to activity/condition/position Manual Therapy Techniques to Include: Mobilization, Passive ROM, Soft tissue mobilization For the Purpose of:: To decrease pain, To increase ROM, To improve nutrient d elivery to tissue TENS: Yes Thermo therapy (hot pack): Yes For the Purpose of:: To decrease pain, To decrease swelling/inflammation, To increase ROM This patient was last seen in our office 05/17/22. Pertinent comments regarding their Physical therapy will appear below: Pt seen 9 visits of POC and was 80% better. She was to f/u 3 weeks later to ensure progress but did not schedule or attend. At this point, it has been over 6 weeks and I will discontinue from my care. At this point I will be discontinuing this patient from physical therapy. I would be happy to see this patient again in the future if found appropriate by the physician. Thank you! Manny Francis, DPT, OCS, CSCS Balance/Gait/Functional tests - Balance/Special Test Scores Lower Extremity Functional Score: 57
--- NOTE | 2022-06-30 18:39 | HP.PTDCSUM ---
It has been my pleasure to treat JUDITH GILBERT referred by Dr. Collin Bautista MD, with the diagnosis of L ITB piriformis syndrome for a total of 10 visit(s). Discharge Date: 06/30/22 Please see the following information for a summary of their discharge status. Subjective: Took a new job and busy and stressful. Did well with hip for a while and did ex really well. had a friend move into hospice and did not do much for a wee. She got worse. Back to stretching now and improving. Has been doing stretches but not started strengthening. To doctor in August. L hip and leg Pain Intensity (Out of 10): 0 % Improvement: 85 Objective/Function: Full aROM B hips, Walking without gait deviations, steps without pain today. Doing well overall and still improving. has stretches down pat but has not started her strengthening. Goal 1:: Patient feel 75% betterin L LE pain at 1/10 at worst. Goal Progress: Goal Met Goal 2:: Pt have full LB ROM and walk without antalgia due to pain Goal Progress: Goal Met Goal 3:: I appropriate HEP to minimize future problems Goal Progress: Goal Met Goal 4:: LEFS score 65 Goal Progress: Progressing Goal 5:: sleep without interruption due to pain Goal Progress: Goal Met Plan: d/c to home stretches and to start strength. Pt to contact doctor if pain does not continue to improve. If there are questions or concerns regarding this patient's physical therapy, please feel free to call me at [phone]. Thank you for the referral of this patient. Sincerely, Manny Francis, DPT, OCS, CSCS Balance/Gait/Functional tests - Balance/Special Test Scores Lower Extremity Functional Score: 57
== END 2022-06-30 19:00 | disposition home or self-care (01) ==
LOC: PT 18:00
PROVIDERS: PCP Family Medicine; Referring Provider Family Medicine; Visit Provider Family Medicine
DX: M76.32 Iliotibial band syndrome, left leg (principal); G57.01 Lesion of sciatic nerve, right lower limb
CPT/HCPCS: 97110; 97140; 97161; 97164; 97530

== ENCOUNTER → 2023-09-15 | Outpatient (CLI) | payer OTHER, SELFPAY ==
--- NOTE | 2023-09-15 07:54 | BI_ITS ---
MAMMOGRAPHY - BILATERAL SCREENING REASON FOR EXAM: Female, 63 years old. Routine annual screening examination. PERTINENT HISTORY: Aunts with breast cancer. TECHNIQUE: Digital bilateral breast steve (3D mammographic acquisition) in the CC and MLO projections. 2-D mediolateral oblique (MLO) and craniocaudad (CC) views of both breasts were obtained. CAD: Full Field Digital Mammography with Computer Added Detection was performed. COMPARISON: Comparison is made with prior study dated July 01, 2020 and December 04, 2020. FINDINGS: Breast Composition: The breasts are heterogeneously dense, which may obscure small masses. There are no dominant masses or suspicious calcifications. Stable asymmetry of breast tissue with more breast tissue is seen in the upper outer quadrant of the right breast as compared to the left side. Stable 9 mm well-defined nodule in the upper central portion of the left breast. A tissue clip marker is once again seen in the retroareolar region of the left breast. No other significant abnormalities are identified. There has been no significant change since the prior study. BI/SCRN MAMM (CAD)W/STEVE BILAT IMPRESSION: Stable bilateral screening mammogram. Yearly follow-up mammogram recommended. (A) ASSESSMENT CATEGORY: BIRADS Category 2: Benign. A letter regarding these results will be sent to the patient by the facility within 30 days. Approximately 10% of breast cancers are not detected by mammography. A normal mammogram should not delay biopsy of a clinically suspicious abnormality. [id number] Electronically Signed: Sen Flores MD at 12:27 EST ,
[2023-09-15 09:14] LABS: Vitamin B12 362 pg/mL (211-911); Vitamin D,25 Hydroxy 36.5 ng/mL
[2023-09-15 09:24] LABS: AST(SGOT) 20 U/L (15-37); Alanine Aminotransfer ALT/SGPT 23 U/L (13-56); Albumin, Serum 3.9 g/dL (3.2-5.0); Alkaline Phosphatase 60 U/L (45-117); Anion Gap 4 (5-15); BUN 17 mg/dL (7-18); BUN/Creat Ratio 13.5 RATIO (10-20); Calcium,Total 9.7 mg/dL (8.5-10.1); Chloride 106 mmol/L (98-107); Cholesterol 122 mg/dL (200); Creatinine, Serum 1.26 mg/dL (0.55-1.02); EST Glomerular Filtration Rate 45 mL/min (>60); Est Glom Filt Rate - Afr Amer 55 mL/min (>60); Globulin 4.1 g/dL (2.2-4.2); Glucose 187 mg/dL (74-106); High Density Lipoprotein 39 mg/dL; Iron 70 ug/dL (50-170); Potassium 4.3 mmol/L (3.5-5.1); Sodium Level 135 mmol/L (136-145); Thyroid Stim Hormone (TSH) 2.44 uIU/mL (0.358-3.74); Triglycerides 103 mg/dL; Very Low Density Lipoprotein 21 mg/dL (5-40)
== END | disposition home or self-care (01) ==
PROVIDERS: PCP Family Medicine; Referring Provider Family Medicine; Visit Provider Family Medicine
DX: Z12.31 Encounter for screening mammogram for malignant neoplasm of breast (principal); E11.22 Type 2 diabetes mellitus with diabetic chronic kidney disease; N18.9 Chronic kidney disease, unspecified
CPT/HCPCS: 36415; 77063; 77067; 80053; 80061; 82306; 82607; 83540; 84443

== ENCOUNTER → 2024-06-25 | Outpatient (CLI) | payer OTHER, SELFPAY ==
--- NOTE | 2024-06-25 | EMB_PTH ---
PATIENT: JUDITH GILBERT LOC: [facility] U#:[id number] AGE/SX: 63/F ROOM: RE06/25/[address]: Dr. Luciana Doan DO : 1960 BED: DIS: 06/25/2024 SPEC #: [id number] RECD: 06/25/24 16:41 STATUS: CARMEN RICARDOHanna #: [id number] [place]: 06/25/24 00:[address]: Luciana Doan DEPT: SURGICAL PATHOLOGY RECD BY: Porfirio Parra ENTERED: 06/26/24 09:23 SP TYPE: ENDOM BX/C NOAH DR: Dr. 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 See comment. 07/03/2024 COMMENT The specimen is sent to [facility] for expert opinion, reviewed by Dr. Domingo and the above diagnosis is rendered. The complete report is viewable in the patient's EMR. Case has been reviewed in consultation with Dr. Heller who concurs with the above diagnosis. IDC:AM MICROSCOPIC DESCRIPTION Slides are reviewed. GROSS DESCRIPTION Received in fixative is one container labeled with the patient's name and designated Endometrial biopsy. The specimen consists of multiple irregular fragments of sin-mucoid tissue that in aggregate measure 3.0 x 2.5 x 0.3 cm. The specimen is totally submitted in one cassette. 06/26/2024 TC:5 CPT:72817
[2024-07-04 22:07] LABS: HPV APTIMA, High Risk Positive (Negative); HPV Genotype 16, Aptima Negative (Negative); HPV Genotype 18,45 Aptima Negative (Negative)
== END | disposition home or self-care (01) ==
LOC: LABSPEC 15:51
PROVIDERS: PCP Family Medicine; Referring Provider Obstetrics & Gynecology; Visit Provider Obstetrics & Gynecology
DX: Z12.4 Encounter for screening for malignant neoplasm of cervix (principal); N85.02 Endometrial intraepithelial neoplasia [EIN]
CPT/HCPCS: 87624; 88175; 88305; G0145

== ENCOUNTER → 2024-07-10 | Outpatient (CLI) | payer OTHER, SELFPAY ==
--- NOTE | 2024-07-10 15:47 | US_ITS ---
ACR Level 3 findings have been noted. An addendum which confirms receipt of the report will follow. PROCEDURE: ULTRASOUND OF THE FEMALE PELVIS - COMPLETE REASON FOR EXAM: Female, 63 years old. postmenopausal bleeding TECHNIQUE: Transabdominal and Transvaginal TECHNICAL QUALITY: Adequate. COMPARISON: None. FINDINGS: The uterus is anteverted and is in a midline position. The uterus measures 6.9 x 4.6 x 3.7 cm. There is no demonstrated myometrial mass. The endometrium is markedly thickened at 1.56 cm but is diffusely hyperechoic. No visualized endometrial mass or fluid is present. Endometrial hyperplasia is suspected, however direct physical examination and visualization of the endometrium with tissue sampling will be required for definitive diagnosis as diffuse endometrial malignancy can present in this manner. MRI of the pelvis with and without intravenous contrast can also be obtained for greater assessment of the uterus and endometrium and adjacent adnexal structures. Normal uterine cervix. The right ovary is definitively visualized. There is a cystic or fluid-filled tubular structure in the right adnexa that could represent either a right ovary with a dominant follicular cyst or a loop of bowel. This is not clearly determined by ultrasound. There is no visualized right adnexal mass or complex lesion. The left ovary is non-visualized. There is no visualized left adnexal mass or complex lesion. There is no fluid in the cul-de-sac. US/Pelvic w/ Transvaginal IMPRESSION: 1. The endometrium is markedly thickened at 1.56 cm but is diffusely hyperechoic. No visualized endometrial mass or fluid is present. Endometrial hyperplasia is suspected, however direct physical examination and visualization of the endometrium with tissue sampling will be required for definitive diagnosis as diffuse endometrial malignancy can present in this manner. 2. MRI of the pelvis with and without intravenous contrast can also be obtained for greater assessment of the uterus and endometrium and adjacent adnexal structures. Electronically Signed: Quan Denis MD at 11:16 EST ,
== END | disposition home or self-care (01) ==
LOC: US 15:44
PROVIDERS: PCP Family Medicine; Referring Provider Obstetrics & Gynecology; Visit Provider Obstetrics & Gynecology
DX: N95.0 Postmenopausal bleeding (principal)
CPT/HCPCS: 76830; 76856

== ENCOUNTER → 2024-08-30 | Outpatient (CLI) | payer OTHER, SELFPAY ==
[2024-08-30 10:30] LABS: Hematocrit 39.2 % (37-47); Mean Corp Hgb Conc 33.2 g/dL (32-36); Mean Corpuscular Hgb 27.7 pg (27.0-32.0); Mean Corpuscular Volume 83.4 fL (81-99); Mean Platelet Vol. 12.5 fl (6.2-12.0); Platelet Count 270 K/mm3 (150-450); RBC Distribution Width CV 12.9 % (11.6-14.6); RBC Distribution Width SD 38.9 fl (35.1-43.9); White Blood Count 7.4 K/mm3 (4.4-11.0)
[2024-08-30 10:47] LABS: Vitamin D,25 Hydroxy 47.4 ng/mL
[2024-08-30 10:52] LABS: PTHIN 26.4 pg/mL (18.4-80.1)
[2024-08-30 11:02] LABS: ALB/GLOB Ratio 0.9 RATIO (0.9-2.4); AST(SGOT) 15 U/L (15-37); Alanine Aminotransfer ALT/SGPT 15 U/L (13-56); Albumin, Serum 3.6 g/dL (3.2-5.0); Alkaline Phosphatase 49 U/L (45-117); Anion Gap 7 (5-15); BUN 17 mg/dL (7-18); BUN/Creat Ratio 16.2 RATIO (10-20); Calcium,Total 9.5 mg/dL (8.5-10.1); Chloride 109 mmol/L (98-107); Cholesterol 97 mg/dL (200); Creatinine, Serum 1.05 mg/dL (0.55-1.02); EST Glomerular Filtration Rate 56 mL/min (>60); Est Glom Filt Rate - Afr Amer 68 mL/min (>60); Glucose 156 mg/dL (74-106); High Density Lipoprotein 33 mg/dL; Iron 85 ug/dL (50-170); Potassium 4.1 mmol/L (3.5-5.1); Protein, Total 7.6 g/dL (6.4-8.2); Sodium Level 135 mmol/L (136-145); Triglycerides 76 mg/dL; Very Low Density Lipoprotein 15 mg/dL (5-40)
== END | disposition home or self-care (01) ==
LOC: MFPLAB 08:44
PROVIDERS: PCP Family Medicine; Referring Provider Family Medicine; Visit Provider Family Medicine
DX: E11.22 Type 2 diabetes mellitus with diabetic chronic kidney disease (principal); N93.8 Other specified abnormal uterine and vaginal bleeding; N18.9 Chronic kidney disease, unspecified

== ENCOUNTER → 2024-12-19 | Outpatient (CLI) | payer OTHER, SELFPAY ==
--- NOTE | 2024-12-19 14:50 | BD_ITS ---
PROCEDURE: DEXA BONE DENSITY STUDY 12/19/2024 REASON FOR EXAM: F, age 64 y/o . Postmenopausal. TECHNIQUE: DEXA scan of sites with data reported below. Scanner utilized: [email or web address]. REFERENCE LINKS: ISCD Adult Positions COMPARISON: None FINDINGS: BMD and T-SCORES Lumbar spine: 1.005 g/cm2, T-score -0.4 Levels: L1 through L4 Left femoral neck: 0.814 g/cm2, T-score -0.3 Left total hip: 0.961 g/cm2, T-score 0.2 Right femoral neck: 0.831 g/cm2, T-score -0.2 Right total hip: 1.005 g/cm2, T-score 0.5 The World Health Organization has defined the following categories based on bone density: Normal bone density: T-score equal to or greater than -1.0 Osteopenia: T-score between -1.0 and -2.5 Osteoporosis: T-score equal to or less than -2.5 FRAX (or Comparable) Fracture Risk Assessment: 10 Year Probability of Fracture: Major Osteoporotic Fracture: 13% Hip Fracture: 0.3% (Note: FRAX is not to be reported in setting of normal range bone density, osteoporosis on DEXA, known history of osteoporosis, prior osteoporotic hip or vertebral fracture, or for any patient undergoing pharmacological treatment for bone loss.) The National Osteoporosis Foundation (NOF) recommends pharmacological treatment for patients with a FRAX 10-year risk of 3% or higher for a hip fracture, or 20% or higher for a major osteoporotic fracture, to prevent osteoporosis and reduce fracture risk. The patient does not meet the pharmacological treatment recommendations for prevention of osteoporosis. BD/Dexa Bone Density Study IMPRESSION: NORMAL T-SCORES. Recommend follow-up as clinically warranted. Reading Location: [id number]
--- NOTE | 2024-12-19 14:50 | BI_ITS ---
EXAM: SCRN MAMM (CAD)W/STEVE BILAT DATE: 12/19/2024 CLINICAL HISTORY: F, Age 64 y/o , SCREENING BREAST CANCER RISK ASSESSMENT: Has not been calculated. TECHNIQUE: Bilateral screening digital breast tomosynthesis with 2D and 3D images. Computer aided detection. COMPARISON: Prior exam(s) dated 09/15/2023 and 12/04/2020. FINDINGS: TISSUE DENSITY: The breast tissue is composed of scattered area of fibroglandular density. Bilateral Breast Mammographic Findings: No significant masses, calcifications or other abnormalities are identified.Stable partially obscured isodense masses are seen in both breasts. Stable nodular densities are seen in both breasts. Benign- appearing round microcalcifications are seen in both breasts. A radiopaque clip is seen in the right breast. The biopsy was benign. The post biopsy site is stable. BI/SCRN MAMM (CAD)W/STEVE BILAT IMPRESSION: OVERALL FINAL ASSESSMENT: BIRADS 2 BENIGN FINDING RECOMMENDATION: Routine annual follow-up in 1 Year A letter with findings and recommendations will be mailed to the patient. Reading Location: [id number]
== END | disposition home or self-care (01) ==
LOC: OPBD 14:49
PROVIDERS: PCP Family Medicine; Referring Provider Family Medicine; Visit Provider Family Medicine
DX: Z12.31 Encounter for screening mammogram for malignant neoplasm of breast (principal); Z78.0 Asymptomatic menopausal state
CPT/HCPCS: 77063; 77067; 77080

== ENCOUNTER → 2025-03-20 | Outpatient (CLI) | payer OTHER, SELFPAY ==
[2025-03-20 17:31] LABS: Anion Gap 16 (5-15); BUN 19 mg/dL (4-19); BUN/Creat Ratio 17.4 RATIO (10-20); Calcium,Total 10.4 mg/dL (7.6-11.0); Carbon Dioxide 22.1 mmol/L (21.0-32.0); Chloride 101 mmol/L (98-108); Glucose 115 mg/dL (70-99); Potassium 4.3 mmol/L (3.3-5.1)
[2025-03-24 14:08] LABS: ANTINUCLEAR ANTIBODIES DIRECT Positive (Negative)
== END | disposition home or self-care (01) ==
LOC: MFPLAB 10:18
PROVIDERS: PCP Family Medicine; Referring Provider Family Medicine; Visit Provider Family Medicine
DX: I10 Essential (primary) hypertension (principal); L80 Vitiligo
CPT/HCPCS: 36415; 80048; 85652; 86038